=== PATIENT | male | born 1990 | race Caucasian/White ===

== ENCOUNTER 2023-06-01 16:19 | Emergency (ER) | payer OTHER, SELFPAY ==
--- NOTE | ~2023-06-01 | CT_ITS ---
EXAMINATION: CT head/brain wo IV con CLINICAL INFORMATION: Reason for Exam R facial droop COMPARISON: None. TECHNIQUE: Contiguous axial imaging was performed from the skull base to vertex without intravenous contrast. Sagittal and coronal reformatted images were obtained. This CT examination was performed using dose optimization techniques as appropriate, variously including the following: * Automated exposure control * Adjustment of mA and/or kV according to patient size (this includes techniques or standardized protocols for targeted exams where dose is matched to indication/reason for exam; i.e. extremities or head) Use of iterative reconstruction technique DLP: 679 mGy-cm FINDINGS: The ventricles and sulci are normal in size and configuration without significant volume loss or hydrocephalus. There is no abnormal attenuation within the brain parenchyma. No territorial loss of [place]-white differentiation. No acute intracranial hemorrhage or extra-axial fluid collection. No mass lesion, significant mass effect, or herniation pattern. The orbits are grossly normal. Leftward nasal septal deviation impinging upon the left inferior nasal turbinate. Mild bilateral maxillary sinus mucosal disease. No mastoid effusion. Osseous structures are intact. Torus palatini. CT/CT head/brain wo IV con IMPRESSION: No acute intracranial abnormality. Specifically, no CT evidence of acute intracranial hemorrhage, significant mass effect, hydrocephalus, or large territorial infarction.
[2023-06-01 17:01] VITALS: BP 152/96; PULSE 94; RESP 20; TEMP 36.7; O2SAT 100; BMI 28.1
--- NOTE | 2023-06-01 17:07 | ED_ITS ---
HPI - General Adult General Chief complaint: Headache Stated complaint: Facial Drooping and weakness Time Seen by Provider: 06/01/23 21:30 Source: patient and family Mode of arrival: ambulatory Limitations: no limitations History of Present Illness HPI narrative: 32 yo male with PMH of HTN here with c/o 1 week of sore throat, cold symptoms then on Thursday developed R sided facial numbness/pain and headaches and each day his R face has progressively become weaker. The weakness has spread and he went to today had negative COVID test and was sent to ED for further work up. No prior hx of stroke or bells palsy, no cold sores in the past, no tick bites. MD complaint: viral syndrome, facial weakness Onset (ago): day(s) (3) Location: head and face Radiation: non-radiation Severity: mild Quality: constant Pain Consistency: constant Relieving factors: none Exacerbating factors: none Associated symptoms: other (URI symptoms) Treatments prior to arrival: none Related Data Previous Rx's Medication Instructions Recorded erythromycin 5 mg/gram (0.5 %) eye 1 appl ophthalmic-Right BID 5 days 06/01/23 ointment #3.5 grams prednisone 20 mg tablet 40 mg (2 x 20 mg) PO DAILY 5 days 06/01/23 #10 tabs valacyclovir 1 gram tablet 1,000 mg PO TID 7 days #21 tabs 06/01/23 (Valtrex) Allergies Allergy/AdvReac Type Severity Reaction Status Date / Time No Known Allergies Allergy Verified 06/01/23 17:07 Review of Systems 2 Review of Systems: Constitutional : No Fever, No Chills, No Fatigue ENT/Mouth : pos sore throat, No Rhinorrhea Eyes: No Eye Pain, No Swelling, pos Redness, pos tearing Cardiovascular : No Chest Pain, No SOB, No Dyspnea on Exertion Respiratory : No Cough, No Sputum Gastrointestinal : No Nausea, No Vomiting, No Diarrhea, No abdominal Pain Genitourinary : No Dysuria, No Urinary Frequency, No Hematuria, Musculoskeletal : No joint pain, No Myalgias, No Joint Swelling Skin : No Skin Lesions, No rash Neuro : ops Weakness, pos Numbness, No Dizziness, positive Headache Psych : No Anxiety/Panic, No Depression Heme/Lymph: No Bruising, No Bleeding,No Lymphadenopathy Endocrine : No Polyuria, No Polydipsia All other systems reviewed and are negative PMFSH Past Medical History Attestation statement: The following information was validated with the patient. Medical History HTN (hypertension) Social History Social History (Updated 06/01/23 @ 22:00 by Sherie Lopez DO) Patient Tobacco Use Status: Never used Tobacco Physical Exam ED Vital Signs: Vital Signs - 24 hr 06/01/23 17:01 06/01/23 20:44 Temperature 98.0 F 98.2 F Pulse Rate 94 86 Respiratory Rate 20 17 Blood Pressure 152/96 H 142/88 H Pulse Oximetry 100 100 Oxygen Delivery Method Room Air Room Air BMI result Body Mass Index 28.1 Appearance: Alert. Oriented X3. No acute distress. Eyes: Pupils equal, round and reactive to light. 3mm each , normal visual flores, EOM intact, R eye slightly red with some tearing - R TM normal, pharynx no exudates or vesicles noted ENT: Pharynx normal. Neck: Normal inspection. Neck supple. CVS: Normal heart rate and rhythm. Pulses normal. Respiratory: No respiratory distress. Breath sounds normal. Abdomen: Soft and nontender. Skin: Skin warm and dry. Normal skin color. Normal skin turgor. Extremities: No lower extremity edema. No calf ttp Neuro: Oriented X 3. No motor deficit. No sensory deficit. R side of face slight droop which involves the entirety of the face and he cannot move his eyebrow Course Course Course Narrative: This is an RME: Additional HPI, ROS, PE not included below will be deferred to primary provider. This is a [id number], with a hx of hypertension, presenting to the emergency department with complaints of right sided facial droop since thursday. Pt states that he had a headache on Thursday, and noticed to have right-sided facial droop starting then. Patient neurologically intact however does have a right-sided facial droop noted, able to lift both eyebrows.VSS. Pt is out of stroke window, but will notify charge nurse to bring pt back [place] Plan: Labs, CT head Medical Decision Making Medical Decision Making MDM Narrative: 32 yo male with PMH of HTN here with c/o R sided facial numbness/weakness in setting of URI that has worsened over 3 days and does not spare the forehead consistent with bells palsy - he has no other weakness or signs of bacterial infection at this time will start on valtrex and steroids. No cold sores or tick bites, CT scan was normal though low susp for stroke - DC home with precautions Differential Diagnosis Differential Diagnoses: The differential diagnosis associated with the presentation includes bells palsy, viral syndrome Admission/Observation Consideration of admission/observation: Escalation of care including admission/observation considered can be managed as outpatient with oral medications Lab Data MDM Lab Attestation statement: I reviewed the patient's lab results. 06/01/23 17:38 06/01/23 17:38 Labs: Lab Results 06/01/23 Range/Units 17:38 WBC 10.3 (4.8-10.8) X10*3/uL RBC 5.33 (4.60-5.80) X10*6/uL Hgb 14.7 (14.0-18.0) g/dl Hct 44.9 (42.0-52.0) % MCV 84.2 (80.0-98.0) fL MCH 27.6 (27.0-33.0) pg MCHC 32.7 (31.0-36.0) g/dl RDW 13.1 (11.0-16.0) % Plt Count 327 (160-400) X10*3/uL MPV 9.6 (9.4-12.4) fL Immature Gran % (Auto) 0.4 (0.0-0.4) % Neut % (Auto) 75.0 H (45-73) % Lymph % (Auto) 17.0 L (20-40) % [place] % (Auto) 4.5 (2-11) % Eos % (Auto) 2.5 (0-4) % Baso % (Auto) 0.6 (0-2) % Lymph # (Auto) 1.8 (1.2-4.9) X10*3/uL [place] # (Auto) 0.5 (0.1-1.2) X10*3/uL Eos # (Auto) 0.3 (0.0-0.4) X10*3/uL Baso # (Auto) 0.1 (0.0-0.2) X10*3/uL Abs Immat Gran (auto) 0.04 H (0.00-0.03) X10*3/uL Absolute Neuts (auto) 7.7 (2.0-8.3) x10*3/uL Absolute Nucleated RBC 0.000 (0.0-0.012) X10*3/uL Nucleated RBC % (auto) 0.0 (0.0-0.2) /100WBC Sodium 142 (135-145) mmol/L Potassium 4.2 (3.3-5.1) mmol/L Chloride 104 (96-108) mmol/L Carbon Dioxide 24 (22-29) mmol/L Anion Gap 18 (12-20) BUN 11 (9-16) mg/dL Creatinine 0.77 (0.5-1.4) mg/dL Estim Creat Clear Calc 148.4 Estimated GFR > 60 Random Glucose 150 H (60-115) mg/dL Calcium 10.2 (8.4-10.2) mg/dL Total Bilirubin 1.3 H (0.0-1.0) mg/dL Direct Bilirubin 0.3 (0.0-0.5) mg/dL AST 24 (5-37) U/L ALT 36 (0-40) U/L Alkaline Phosphatase 98 (39-117) U/L Total Protein 8.1 H (6.5-8.0) g/dL Albumin 4.9 (3.5-5.0) g/dL Independent Interpretation I performed an independent interpretation of an: CT Scan (no ICH) Radiology Impression Discussion of test interpretation with radiology: I have reviewed the radiologist's reading. Independent Historian Clinical information obtained from an independent historian. History obtained from or confirmed by: Spouse Prescription Management I considered prescription management with: Antiviral and Other Chronic Conditions Patient?s care impacted by: Hypertension Discharge Plan Discharge Clinical Impression: Gómez's palsy Patient Disposition: Home, Self-Care Instructions: Gómez Palsy (ED) Additional Instructions: this can get worse including worsening eye irritation and movement of the face. this can reoccur in the future. no signs of stroke of head CT this is irritation of the facial nerve. return for worsening symptoms of numbness or weakness anywhere else, loss of vision or any other concerns. [place] puede empeorar, incluido un empeoramiento de la irritaci?n de los ojos y el movimiento de la porfirio. esto puede volver a ocurrir en el futuro. No hay signos de accidente cerebrovascular en la TC de la [place]. [place] es irritaci?n del nervio facial. Prescriptions: New prednisone 20 mg tablet 40 mg PO DAILY 5 Days Qty: 10 0RF valacyclovir [Valtrex] 1 gram tablet 1,000 mg PO TID 7 Days Qty: 21 0RF erythromycin 5 mg/gram (0.5 %) ointment 1 appl ophthalmic-Right BID 5 Days Qty: 3.5 0RF Print Language: Swedish
[2023-06-01 17:42] LABS: MANUAL DIFF FLAG NO
[2023-06-01 17:44] LABS: Basophils Absolute Auto 0.1 X10*3/uL (0.0-0.2); Basophils Percent Auto 0.6 % (0-2); Eosinophils Absolute Auto 0.3 X10*3/uL (0.0-0.4); Eosinophils Percent Auto 2.5 % (0-4); Hematocrit 44.9 % (42.0-52.0); Hemoglobin 14.7 g/dl (14.0-18.0); Imm Gran Abs Auto 0.04 X10*3/uL (0.00-0.03); Imm Gran Pct Auto 0.4 % (0.0-0.4); Lymphocytes Absolute Auto 1.8 X10*3/uL (1.2-4.9); Mean Corpuscular HGB Conc 32.7 g/dl (31.0-36.0); Mean Corpuscular Hemoglobin 27.6 pg (27.0-33.0); Mean Corpuscular Volume 84.2 fL (80.0-98.0); Mean Platelet Volume 9.6 fL (9.4-12.4); Monocytes Absolute Auto 0.5 X10*3/uL (0.1-1.2); Monocytes Percent Auto 4.5 % (2-11); Neutrophils Absolute Auto 7.7 x10*3/uL (2.0-8.3); Platelet Count 327 X10*3/uL (160-400); Red Blood Count 5.33 X10*6/uL (4.60-5.80); Red Cell Distribution Width 13.1 % (11.0-16.0); White Blood Count 10.3 X10*3/uL (4.8-10.8)
[2023-06-01 18:01] LABS: Alanine Aminotransferase 36 U/L (0-40); Albumin Level 4.9 g/dL (3.5-5.0); Alkaline Phosphatase 98 U/L (39-117); Anion Gap 18 (12-20); Aspartate Amino Transferase 24 U/L (5-37); Bilirubin Direct 0.3 mg/dL (0.0-0.5); Bilirubin Total 1.3 mg/dL (0.0-1.0); Blood Urea Nitrogen 11 mg/dL (9-16); Calcium 10.2 mg/dL (8.4-10.2); Carbon Dioxide 24 mmol/L (22-29); Chloride 104 mmol/L (96-108); Creatinine Clr Calc Pharmacy 148.4; Estimated Glomerular Filt Rate > 60; Glucose Random 150 mg/dL (60-115); Potassium 4.2 mmol/L (3.3-5.1); Sodium 142 mmol/L (135-145); Total Protein 8.1 g/dL (6.5-8.0)
[2023-06-01 20:44] VITALS: BP 142/88; PULSE 86; RESP 17; TEMP 36.8; O2SAT 100
[2023-06-01 21:51] VITALS: BP 137/79; PULSE 71; RESP 16; TEMP 36.8; O2SAT 98
[2023-06-04 13:24] LABS: Lyme Abs Screen <0.90 index
[2023-06-05 21:08] LABS: Babesia IgG <1:64 titer (<1:64); Babesia IgM <1:20 titer (<1:20)
[2023-06-08 10:40] LABS: A. Phagocytophilum Ab IgG <1:64 (<1:64); A. Phagocytophilum Ab IgM <1:20 (<1:20); E. Chaffeensis Ab IgG <1:64 (<1:64); E. Chaffeensis Ab IgM <1:20 (<1:20)
== END 2023-06-01 22:15 | disposition home or self-care (01) ==
PROVIDERS: Physician Assistant Medical; Emergency Provider Emergency Medicine
DX: G51.0 Bell's palsy (principal); R51.9 Headache, unspecified; Z79.899 Other long term (current) drug therapy
CPT/HCPCS: 36415; 70450; 80048; 80076; 85025; 86617; 86618; 86666; 86753; 99284